=== PATIENT | male | born 1985 | race Caucasian/White ===

== ENCOUNTER 2017-10-15 20:44 | Emergency (ER) | payer SELFPAY ==
[~2017-10-15] VITALS: Ht 172.7 cm; Wt 78.8 kg
[2017-10-15 20:49] VITALS: BP 146/100; TEMP 36.6; O2SAT 98; Ht 172.7 cm; Wt 78.8 kg
[2017-10-15 20:59] VITALS: PULSE 139
--- NOTE | 2017-10-15 21:40 | EMERGENCY ROOM VISIT NOTE ---
History Report prepared by Isabel: Benji Hodges Under the Supervision of: Dr. Jerald Shankar M.D. First contact with patient: 20:48 Chief Complaint: ALCOHOL OVERDOSE Stated Complaint: ETOH Nursing Triage Summary: pt arrives via EMS accompanied by PD pt appears intoxicated and states I was drinking unknown amount History of Present Illness The patient is a 32 year old male who presents to the Emergency Room with complaints of a constant alcohol overdose that started prior to arrival. Per police, the patient was confronted by the security staff at the [facility] for falling over from intoxication. The patient reports that he only had a couple of beers. He states that security would not let him in, which caused him to buy another ticket. The patient states that he was able to get into the [facility], but the staff had realized he was back and called the police for trespassing. He reports that he was brought into the ED via ambulance. Per police, his PBT read 0.318. The patient denies vomiting. He denies a history of heart, lung, or kidney problems. He reports that he typically drinks alcohol on the weekends. Source of History: patient Onset: [employer] Position: other (global) Quality: other (0.318 PBT) Timing: constant Associated Symptoms: No vomiting Note: Associated symptoms: falling over Review of Systems See HPI for pertinent positives & negatives. A total of 10 systems reviewed and were otherwise negative. Past Medical & Surgical Medical Problems: (1) No known problems Family History Patient reports no known family medical history. Social History Smoking Status: Never Smoker Alcohol Use: occasionally Drug Use: none Occupation Status: employed Current/Historical Medications No Active Prescriptions or Reported Meds Allergies Coded Allergies: No Known Allergies (Unverified , 10/15/17) Physical Exam Vital Signs Date Time Temp Pulse Resp B/P (MAP) Pulse Ox O2 Delivery O2 Flow Rate FiO2 10/15/17 20:59 139 10/15/17 20:49 36.6 135 20 146/100 98 Room Air Physical Exam GENERAL: Patient is in no acute distress. HEENT: No acute trauma, normocephalic atraumatic, mucous membranes slightly dry , no nasal congestion, no scleral icterus. NECK: No stridor, no adenopathy, no meningismus, trachea is midline. LUNGS: Clear to auscultation bilaterally, no wheeze, no rhonchi, breath sounds equal. HEART: Mildly tachycardic with a regular rhythm. No murmurs. ABDOMEN: Soft, nontender, bowel sounds positive, no hernias, no peritonitis. EXTREMITIES: No cyanosis or edema, full range of motion of all the joints without pain or difficulty, no signs for acute trauma. NEUROLOGIC: Moving all extremities. Awake and alert. Appears mildly intoxicated with alcohol. Slight speech slur. Able to relay the series of events this evening. Able to name the town where he lives. SKIN: No rash, no jaundice, no diaphoresis. Medical Decision & Procedures ED Course 2048: The patient was evaluated in room B11B. A complete history and physical exam was performed. 2050: I discussed the outcome of the visit with the patient. I informed him that he will be discharged into the custody of the police. The patient is ready for discharge. Medical Decision The patient is a 32 year old male who presents to the Emergency Room with complaints of a constant alcohol overdose that started prior to arrival. Differential diagnoses considered include alcohol intoxication, drug, dehydration, trauma, and vomiting. The patient presents after being brought in by the police for trespassing and alcohol abuse. The patient admits to drinking alcohol, he denies trauma or vomiting. He states he is healthy with no ongoing medical conditions. He states he does drink alcohol during the week and more heavily on the weekends. He feels intoxicated but not significantly so. The patient presents slightly tachycardic but he is anxious as he is being arrested. The police are asking for clearance to take him to [facility]. The patient did have a PBT reading of 0.318 as an outpatient. He was watched here for a short time, no somnolence, no vomiting. He is not in danger of losing his airway. I suspect the tachycardia is from his alcohol use, his anxiety. It does appear to be a sinus tachycardia on the monitor. The patient is being discharged in the custody of police. Medication Reconcilliation Current Medication List: was personally reviewed by me Blood Pressure Screening Patient's blood pressure: Elevated blood pressure Blood pressure disposition: Elevated BP felt to be situational Impression Primary Impression: Alcohol intoxication Additional Impression: Tachycardia Scribe Attestation The scribe's documentation has been prepared under my direction and personally reviewed by me in its entirety. I confirm that the note above accurately reflects all work, treatment, procedures, and medical decision making performed by me. Departure Information Dispostion Other (Discharge into the custody of police) Prescriptions No Active Prescriptions or Reported Meds Forms HOME CARE DOCUMENTATION FORM, IMPORTANT VISIT INFORMATION Patient Instructions My [facility] Additional Instructions follow the advice and instructions of the police return with any concerns or persistent vomiting stay well hydrated--alcohol can dehydrate you Problem Qualifiers
== END 2017-10-15 21:13 | disposition home or self-care (01) ==
LOC: C.EDB 20:48
DX: F10.129 Alcohol abuse with intoxication, unspecified (principal); R00.0 Tachycardia, unspecified